=== PATIENT | male | born 1955 | race Caucasian/White ===

== ENCOUNTER 2019-06-03 15:19 | Inpatient (IN) | payer OTHER ==
--- NOTE | 2019-06-03 19:29 | HP ---
CIWA Score - Admission Criteria OASAS Guidelines: Admission for Medically Managed Detox: Requires at least one of the followin. CIWA greater than 12 2. Seizures within the past 24 hours 3. Delirium tremens within the past 24 hours 4. Hallucinations within the past 24 hours 5. Acute intervention needed for co occurring medical disorder 6. Acute intervention needed for co occurring psychiatric disorder 7. Severe withdrawal that cannot be handled at a lower level of care (continued vomiting, continued diarrhea, abnormal vital signs) requiring intravenous medication and/or fluids 8. Admission ROS S - HPI Allergies/Adverse Reactions: Allergies Allergy/AdvReac Type Severity Reaction Status Date / Time ibuprofen [From Motrin] AdvReac Vomiting Verified 06/03/19 17:48 History of Present Illness: Data Detail Level: Printer-Friendly View Confidential Drug Utilization Report Search Terms: more kaiser, 1955 Search Date: 06/03/2019 07:27:20 PM The Drug Utilization Report below displays all of the controlled substance prescriptions, if any, that your patient has filled in the last twelve months. The information displayed on this report is compiled from pharmacy submissions to the Department, and accurately reflects the information as submitted by the pharmacies. There are no results for the search terms that you entered. 2017 [facility] Department of Health - [place] of Narcotic Enforcement 06/03/2019 19:27:20 Patient History - Substances abused Alcohol Substance route: Oral Frequency: Daily Amount used: 12 beers Age of first use: 16 Date of last use: 06/03/19 Heroin Substance route: Inhalation Frequency: Daily Amount used: 6 bags Age of first use: 14 Date of last use: 06/02/19 Admission Physical Exam [facility] - Vital Signs Vital Signs: Vital Signs - 24 hr 06/03/19 06/03/19 17:47 18:18 Temperature 97.6 F 97.6 F Pulse Rate 74 74 Respiratory 20 20 Rate Blood Pressure 136/84 136/84 Breathalyzer - Breathalyzer Breathalyzer: 0 Urine Drug Screen - Test Device Lot number: [id number] Expiration date: 03/17/21 - Control Is test valid?: Yes - Results Drug screen NEGATIVE: No Urine drug screen results: MOP-Opiates, MTD-Methadone
--- NOTE | 2019-06-03 19:43 | HP ---
CIWA Score Nausea/Vomitin (x 1) Muscle Tremors: 3 Anxiety: 4-Mod. Anxious/Guarded Agitation: 3 Paroxysmal Sweats: 2 Orientation: 2-Disoriented Date<2 days Tacttile Disturbances: 0-None Auditory Disturbances: 0-None Visual Disturbances: 0-None Headache: 0-None Present CIWA-Ar Total Score: 16 - Admission Criteria OASAS Guidelines: Admission for Medically Managed Detox: Requires at least one of the followin. CIWA greater than 12 2. Seizures within the past 24 hours 3. Delirium tremens within the past 24 hours 4. Hallucinations within the past 24 hours 5. Acute intervention needed for co occurring medical disorder 6. Acute intervention needed for co occurring psychiatric disorder 7. Severe withdrawal that cannot be handled at a lower level of care (continued vomiting, continued diarrhea, abnormal vital signs) requiring intravenous medication and/or fluids 8. Admission ROS [facility] Chief Complaint: Seeking admission to detox from alcohol, on MMTP Allergies/Adverse Reactions: Allergies Allergy/AdvReac Type Severity Reaction Status Date / Time ibuprofen [From Motrin] AdvReac Vomiting Verified 06/03/19 17:48 History of Present Illness: 64 years old male with a long history of alcohol dependence is seeking admission to detox. Patient has been in prior detox at [facility], [facility] 2004 and reports 8 years of sobriety. This is his first admission to [facility]. He has medical history of COPD, Asthma, PPD positive, arthritis, Hep C (treated with Harvoni) and liver Cirrhosis. Patient reports psych history of depression and anxiety (not on medication). He denies suicide attempt and suicidal ideation at this time. [facility] Dose is yet to be confirmed by the nurse. Exam Limitations: No Limitations - Ebola screening Have you traveled outside of the country in the last 21 days: No Have you been sick,other than usual withdrawal symptoms: No Do you have a fever: No - Review of Systems Constitutional: Chills, Malaise, Night Sweats, Changes in sleep EENT: reports: No Symptoms Reported Respiratory: reports: No Symptoms reported Cardiac: reports: No Symptoms Reported GI: reports: Diarrhea (x 2), Nausea, Poor Fluid Intake, Vomiting (x 1), Abdominal cramping : reports: No Symptoms Reported Musculoskeletal: reports: Other (chronic knee pain) Integumentary: reports: Dryness, Flushing Neuro: reports: Tremors Endocrine: reports: No Symptoms Reported Hematology: reports: No Symptoms Reported Psychiatric: reports: Mood/Affect Appropiate, Orientated x3, Anxious, Depressed Other Systems: Reviewed and Negative Patient History - Patient Medical History Hx Anemia: No Hx Asthma: No Hx Chronic Obstructive Pulmonary Disease (COPD): Yes Hx Cancer: No Hx Cardiac Disorders: No Hx Congestive Heart Failure: No Hx Hypertension: No Hx Hypercholesterolemia: No Hx Pacemaker: No HX Cerebrovascular Accident: No Hx Seizures: No Hx Dementia: No Hx Diabetes: No Hx Gastrointestinal Disorders: No Hx Liver Disease: Yes (Hep C) Hx Genitourinary Disorders: No Hx Sexually Transmitted Disorders: No Hx Renal Disease (ESRD): No Hx Thyroid Disease: No Hx Human Immunodeficiency Virus (HIV): No (Negative 2019) Hx Hepatitis C: Yes (Treated with Harvoni) Hx Depression: Yes Hx Suicide Attempt: No (Denies suicidal ideation at this time) Hx Bipolar Disorder: No Hx Schizophrenia: No Other Medical History: Anxiety - Patient Surgical History Past Surgical History: No - PPD History Previous Implant?: No (PPD POSITIVE. TREATED WITH INH) Documented Results: Positive w/o proof Implanted On Prior [facility] Admission?: No PPD to be Administered?: No - Reproductive History Patient is a Female of Child Bearing Age (11 -55 yrs old): No (male) - Smoking Cessation Smoking history: Former smoker Have you smoked in the past 12 months: No Hx Chewing Tobacco Use: No Initiated information on smoking cessation: No - Substance & Tx. History Hx Alcohol Use: Yes Hx Substance Use: Yes Substance Use Type: Alcohol, Heroin, Prescribed Hx Substance Use Treatment: Yes ([facility] [place], [place] 2005) - Substances abused Alcohol Substance route: Oral Frequency: Daily Amount used: 12 beers Age of first use: 16 Date of last use: 06/03/19 Heroin Substance route: Inhalation Frequency: Daily Amount used: 6 bags Age of first use: 14 Date of last use: 06/02/19 Admission Physical Exam [facility] - Vital Signs Vital Signs: Vital Signs - 24 hr 06/03/19 06/03/19 17:47 18:18 Temperature 97.6 F 97.6 F Pulse Rate 74 74 Respiratory 20 20 Rate Blood Pressure 136/84 136/84 - Physical General Appearance: Yes: Moderate Distress, Tremorous, Sweating, Anxious HEENTM: Yes: Within Normal Limits, EOMI, Normal Voice, [place] Respiratory: Yes: Lungs Clear, Normal Breath Sounds, No Respiratory Distress Neck: Yes: Within Normal Limits Breast: Yes: Breast Exam Deferred Cardiology: Yes: Regular Rhythm, Regular Rate Abdominal: Yes: Normal Bowel Sounds, Soft Back: Yes: Normal Inspection Musculoskeletal: Yes: Other (knee pain) Extremities: Yes: Tremors Neurological: Yes: Within Normal Limits, Alert, Normal Mood/Affect Integumentary: Yes: Warm Lymphatic: Yes: Within Normal Limits - Diagnostic (1) Asthma Current Visit: Yes Status: Chronic Qualifiers: Asthma severity: mild Asthma persistence: unspecified (2) COPD (chronic obstructive pulmonary disease) Current Visit: Yes Status: Chronic Qualifiers: Chronic bronchitis type: unspecified (3) Arthritis Current Visit: Yes Status: Chronic (4) Opioid dependence with withdrawal Current Visit: Yes Status: Acute (5) Methadone maintenance therapy patient Current Visit: Yes Status: Chronic (6) Alcohol dependence with withdrawal, uncomplicated Current Visit: Yes Status: Acute (7) PPD positive, treated Current Visit: Yes Status: Chronic Cleared for Admission S - Detox or Rehab [facility] Level of Care: Medically Managed Detox Regimen/Protocol: Librium Claeared for Rehab Admission: No Breathalyzer - Breathalyzer Breathalyzer: 0 Urine Drug Screen - Test Device Lot number: [id number] Expiration date: 03/17/21 - Control Is test valid?: Yes - Results Drug screen NEGATIVE: No Urine drug screen results: MOP-Opiates, MTD-Methadone Inpatient Rehab Admission - Rehab Decision to Admit Inpatient rehab admission?: No
[2019-06-03] MEDS ORDERED: MENTHOL/PHENOL 1 EACH UD MM PRN (19:56)
[2019-06-03] MEDS ORDERED: chlordiazePOXIDE HCL 25 MG CAPSULE PO PRN (19:56)
[2019-06-03] MEDS ORDERED: MAGNESIUM CITRATE 300 ML BOTTLE PO PRN (19:56)
[2019-06-03] MEDS ORDERED: MAGNESIUM HYDROX 2400MG/30ML ORAL SUSPENSION 30 ML CUP PO PRN (19:56)
[2019-06-03] MEDS ORDERED: MAG HYDROX/AL HYDROX/SIMETH 30 ML UNIT-DOSE CUP PO PRN (19:56)
[2019-06-03] MEDS ORDERED: ACETAMINOPHEN 325 MG TABLET (FP) PO PRN ×2 (19:56)
[2019-06-03] MEDS ORDERED: BISMUTH SUBSALICYLATE 524 MG/30 ML UD PO PRN (19:56)
[2019-06-03] MEDS: THIAMINE HCL 100 MG TABLET (FP) PO SCH (21:39)
[2019-06-03] MEDS: METHOCARBAMOL 500 MG TABLET PO PRN (21:39)
[2019-06-03] MEDS: MELATONIN 5 MG TABLETS PO PRN (21:40)
[2019-06-03] MEDS: chlordiazePOXIDE HCL 25 MG CAPSULE PO SCH (22:04)
[2019-06-03] MEDS: ALBUTEROL SO4 HFA INHALER IH PRN (22:14)
[2019-06-04] MEDS: chlordiazePOXIDE HCL 25 MG CAPSULE PO SCH ×4 (06:10→22:13)
[2019-06-04] MEDS ORDERED: METHADONE HCL 10 MG TABLET PO ONE (08:56)
[2019-06-04] MEDS ORDERED: METHADONE 80 MG, METHADONE 30 MG PO ONE (09:30)
[2019-06-04] MEDS ORDERED: METHADONE HCL 10 MG TABLET ONE (09:41)
[2019-06-04] MEDS ORDERED: METHADONE HCL 40 MG DISPERSABLE TABLET ONE (09:42)
[2019-06-04] MEDS: PRENATAL VITAMINS W/ FOLIC ACID TABLET (FP) PO SCH (10:24)
[2019-06-04 10:34] LABS: HEMATOCRIT 37.6 % (35.4-49); HEMOGLOBIN 12.6 GM/dL (11.7-16.9); MCH 29.5 pg (25.7-33.7); MCHC 33.6 g/dl (32.0-35.9); MEAN CELL VOLUME 87.7 fl (80-96); MEAN PLT VOLUME 8.7 fl (7.5-11.1); PLATELET COUNT 218 K/MM3 (134-434); RBC 4.29 M/mm3 (4.00-5.60); RDW 14.1 % (11.9-15.9); WHITE BLOOD COUNT 5.1 K/mm3 (4.0-10.0)
--- NOTE | 2019-06-04 10:39 | PN ---
S CIWA - CIWA Score Nausea/Vomitin-Mild Nausea/No Vomiting Muscle Tremors: 3 Anxiety: 3 Agitation: 1-Slight > Activity Paroxysmal Sweats: 2 Orientation: 0-Oriented Tacttile Disturbances: 0-None Auditory Disturbances: 0-None Visual Disturbances: 1-Very Mild Sensitivity Headache: 1-Very Mild CIWA-Ar Total Score: 12 S Progress Note (SOAP) Subjective: 64 years old male admitted on 06/03/19 for alcohol withdrawal sx management treating with librium detox regiment received methadone 110 mg po today feeling ok ambulating on hallway social with peers in day room attending behavior and psychosocial therapies groups and meetings patient determines to maintain sober and discusses aftercare with staff Objective: 06/04/19 10:38 Vital Signs Temperature 97.5 F L 06/04/19 08:43 Pulse Rate 73 06/04/19 08:43 Respiratory Rate 18 06/04/19 08:43 Blood Pressure 131/84 06/04/19 08:43 O2 Sat by Pulse Oximetry (%) 06/04/19 10:38 lab noted Assessment: 06/04/19 10:38 alcohol withdrawal Plan: librium regiment
--- NOTE | 2019-06-04 10:45 | EKG ---
Test Reason : Blood Pressure : / mmHG Vent. Rate : 064 BPM Atrial Rate : 064 BPM P-R Int : 182 ms QRS Dur : 080 ms QT Int : 432 ms P-R-T Axes : 039 065 075 degrees QTc Int : 445 ms NORMAL SINUS RHYTHM NORMAL ECG NO PREVIOUS ECGS AVAILABLE Confirmed by Rigoberto Montgomery MD ([id number]) on 06/04/2019 10:44:38 AM Referred By: Confirmed By:Rigoberto Montgomery MD
[2019-06-04 10:46] LABS: ALBUMIN 3.2 g/dl (3.4-5.0); BILIRUBIN,TOTAL 0.4 mg/dL (0.2-1); BLOOD UREA NITROGEN 8.9 mg/dL (7-18); CALCIUM 9.3 mg/dL (8.5-10.1); CREATININE 0.9 mg/dL (0.55-1.3); POTASSIUM 4.5 mmol/L (3.5-5.1); TOT PROT 6.7 g/dl (6.4-8.2)
--- NOTE | 2019-06-04 18:45 | CONSULT ---
[facility] Psychiatric Consult - Data Date of interview: 06/04/19 Admission source: [facility] Identifying data: First visit at [facility] and admission to [address] [place] [address] for this 64 y/o male self-referred for detoxification treatment. LORE issues : alcohol, heroin. Patient is single, father of one, homeless, unemployed and supported on SSI benefits. Substance Abuse History: Smoking history: Former smoker. Have you smoked in the past 12 months: No. Hx Chewing Tobacco Use: No. Initiated information on smoking cessation: No. Substance & Tx. History. Hx Alcohol Use: Yes. Hx Substance Use: Yes. Substance Use Type: Alcohol, Heroin, Prescribed. Hx Substance Use Treatment: Yes ([facility] [place], [place] 2005). - Substances abused. Alcohol. Substance route: Oral. Frequency: Daily. Amount used: 12 beers. Age of first use: 16. Date of last use: 06/03/19. Heroin. Substance route: Inhalation. Frequency: Daily. Amount used: 6 bags. Age of first use: 14. Date of last use: 06/02/19 Medical History: Medical profile is remarkable for hepatitis C (treated), bronchial asthma, COPD, osteoarthritis, positive PPD (treated with INH + B6) and cirrhosis of the liver. Psychiatric History: Patient denies history of psychiatric hospitalizations. Reportedly diagnosed with Dysthymic Disorder. Not on psychotropic medications with the exception of methadone 110 mg/day (on maintenance at the [facility] M[facility] program in [facility]). Mr Cruz indicates that he sees a " psychologist " at [facility] for psychotherapy sessions (twice a month). Patient denies history of suicide attempts. Physical/Sexual Abuse/Trauma History: Patient denies. Additional Comment: Urine drug screen results: MOP-Opiates, MTD-Methadone. Noted. Mental Status Exam - Mental Status Exam Alert and Oriented to: Time, Place, Person Cognitive Function: Good Patient Appearance: Well Groomed Mood: Withdrawn, Hopeful Affect: Appropriate, Normal Range Patient Behavior: Fatigued, Cooperative Speech Pattern: Clear, Appropriate Voice Loudness: Normal Thought Process: Intact, Goal Oriented Thought Disorder: Not Present Hallucinations: Denies Suicidal Ideation: Denies Homicidal Ideation: Denies Insight/Judgement: Poor Sleep: Well Appetite: Good Gait/Station: Normal Psychiatric Findings - Problem List (Young 1, 2,3) (1) Alcohol dependence with withdrawal, uncomplicated Current Visit: Yes Status: Acute (2) Opioid dependence on agonist therapy Current Visit: Yes Status: Chronic (3) History of dysthymia Current Visit: Yes Status: Chronic Comment: Self-report. On psychotherapy alone at [facility]. - Initial Treatment Plan Initial Treatment Plan: Psychoeducation. Sleep hygiene. Detoxification. NA/AA meetings. Support. Observation.
[2019-06-04] MEDS: THIAMINE HCL 100 MG TABLET (FP) PO SCH (22:11)
[2019-06-04] MEDS: MELATONIN 5 MG TABLETS PO PRN (22:33)
[2019-06-05] MEDS ORDERED: METHADONE HCL 40 MG DISPERSABLE TABLET ONE (04:50)
[2019-06-05] MEDS ORDERED: METHADONE HCL 10 MG TABLET ONE (04:50)
[2019-06-05] MEDS: chlordiazePOXIDE HCL 25 MG CAPSULE PO SCH ×4 (05:26→22:28)
[2019-06-05] MEDS: METHADONE 80 MG, METHADONE 30 MG PO SCH (05:26)
[2019-06-05] MEDS ORDERED: METHADONE HCL 10 MG TABLET PO SCH (06:00)
[2019-06-05] MEDS: ALBUTEROL SO4 HFA INHALER IH PRN (08:36)
[2019-06-05] MEDS: PRENATAL VITAMINS W/ FOLIC ACID TABLET (FP) PO SCH (10:07)
--- NOTE | 2019-06-05 14:35 | PN ---
[facility] CIWA - CIWA Score Nausea/Vomitin-Mild Nausea/No Vomiting Muscle Tremors: 3 Anxiety: 2 Agitation: 1-Slight > Activity Paroxysmal Sweats: 2 Orientation: 0-Oriented Tacttile Disturbances: 0-None Auditory Disturbances: 0-None Visual Disturbances: 1-Very Mild Sensitivity Headache: 1-Very Mild CIWA-Ar Total Score: 11 S Progress Note (SOAP) Subjective: 64 years old male admitted on 06/03/19 for alcohol withdrawal sx management treating with librum detox regiment feeling ok today ate breakfast and lunch in day room social with peers encourage the patient to attend behavior and psychosocial therapies while in detox Objective: 06/05/19 14:43 Vital Signs Temperature 96.6 F L 06/05/19 12:41 Pulse Rate 72 06/05/19 12:41 Respiratory Rate 18 06/05/19 12:41 Blood Pressure 118/76 06/05/19 12:41 O2 Sat by Pulse Oximetry (%) Laboratory Last Values WBC 5.1 K/mm3 (4.0-10.0) 06/04/19 07:45 RBC 4.29 M/mm3 (4.00-5.60) 06/04/19 07:45 Hgb 12.6 GM/dL (11.7-16.9) 06/04/19 07:45 Hct 37.6 % (35.4-49) 06/04/19 07:45 MCV 87.7 fl (80-96) 06/04/19 07:45 MCH 29.5 pg (25.7-33.7) 06/04/19 07:45 MCHC 33.6 g/dl (32.0-35.9) 06/04/19 07:45 RDW 14.1 % (11.9-15.9) 06/04/19 07:45 Plt Count 218 K/MM3 (134-434) 06/04/19 07:45 MPV 8.7 fl (7.5-11.1) 06/04/19 07:45 Sodium 138 mmol/L (136-145) 06/04/19 07:45 Potassium 4.5 mmol/L (3.5-5.1) 06/04/19 07:45 Chloride 101 mmol/L (98-107) 06/04/19 07:45 Carbon Dioxide 32 mmol/L (21-32) 06/04/19 07:45 Anion Gap 5 MMOL/L (8-16) L 06/04/19 07:45 BUN 8.9 mg/dL (7-18) 06/04/19 07:45 Creatinine 0.9 mg/dL (0.55-1.3) 06/04/19 07:45 Est GFR (CKD-EPI)AfAm 103.51 06/04/19 07:45 Est GFR (CKD-EPI)NonAf 89.31 06/04/19 07:45 Random Glucose 103 mg/dL (74-106) 06/04/19 07:45 Calcium 9.3 mg/dL (8.5-10.1) 06/04/19 07:45 Total Bilirubin 0.4 mg/dL (0.2-1) 06/04/19 07:45 AST 18 U/L (15-37) 06/04/19 07:45 ALT 18 U/L (13-61) 06/04/19 07:45 Alkaline Phosphatase 72 U/L (45-117) 06/04/19 07:45 Total Protein 6.7 g/dl (6.4-8.2) 06/04/19 07:45 Albumin 3.2 g/dl (3.4-5.0) L 06/04/19 07:45 RPR Titer Nonreactive (NONREACTIVE) 06/04/19 07:45 lab noted Assessment: 06/05/19 14:44 alcohol withdrawal Plan: librium regiment
[2019-06-05] MEDS: MELATONIN 5 MG TABLETS PO PRN (22:28)
[2019-06-05] MEDS: THIAMINE HCL 100 MG TABLET (FP) PO SCH (22:28)
[2019-06-06] MEDS ORDERED: chlordiazePOXIDE HCL 10 MG CAPSULE PO PRN
[2019-06-06] MEDS ORDERED: METHADONE HCL 40 MG DISPERSABLE TABLET ONE (04:05)
[2019-06-06] MEDS ORDERED: METHADONE HCL 10 MG TABLET ONE (04:05)
[2019-06-06] MEDS: METHADONE 80 MG, METHADONE 30 MG PO SCH (05:35)
[2019-06-06] MEDS: chlordiazePOXIDE HCL 10 MG CAPSULE PO SCH ×4 (05:35→22:10)
[2019-06-06] MEDS: METHOCARBAMOL 500 MG TABLET PO PRN (05:36)
[2019-06-06] MEDS: PRENATAL VITAMINS W/ FOLIC ACID TABLET (FP) PO SCH (10:15)
[2019-06-06] MEDS: ALBUTEROL SO4 HFA INHALER IH PRN ×2 (10:24→22:19)
--- NOTE | 2019-06-06 11:43 | PN ---
[facility] CIWA - CIWA Score Nausea/Vomitin-No Nausea/No Vomiting Muscle Tremors: 1-None Visible, but [place] Anxiety: 1-Mildly Anxious Agitation: 0-Normal Activity Paroxysmal Sweats: 2 Orientation: 0-Oriented Tacttile Disturbances: 0-None Auditory Disturbances: 0-None Visual Disturbances: 1-Very Mild Sensitivity Headache: 0-None Present CIWA-Ar Total Score: 5 S Progress Note (SOAP) Subjective: Complains of right shoulder pain he attributes to arthritis, mild back pain, asking for albuterol inhaler Objective: 06/06/19 11:40 Laboratory Last Values WBC 5.1 K/mm3 (4.0-10.0) 06/04/19 07:45 RBC 4.29 M/mm3 (4.00-5.60) 06/04/19 07:45 Hgb 12.6 GM/dL (11.7-16.9) 06/04/19 07:45 Hct 37.6 % (35.4-49) 06/04/19 07:45 MCV 87.7 fl (80-96) 06/04/19 07:45 MCH 29.5 pg (25.7-33.7) 06/04/19 07:45 MCHC 33.6 g/dl (32.0-35.9) 06/04/19 07:45 RDW 14.1 % (11.9-15.9) 06/04/19 07:45 Plt Count 218 K/MM3 (134-434) 06/04/19 07:45 MPV 8.7 fl (7.5-11.1) 06/04/19 07:45 Sodium 138 mmol/L (136-145) 06/04/19 07:45 Potassium 4.5 mmol/L (3.5-5.1) 06/04/19 07:45 Chloride 101 mmol/L (98-107) 06/04/19 07:45 Carbon Dioxide 32 mmol/L (21-32) 06/04/19 07:45 Anion Gap 5 MMOL/L (8-16) L 06/04/19 07:45 BUN 8.9 mg/dL (7-18) 06/04/19 07:45 Creatinine 0.9 mg/dL (0.55-1.3) 06/04/19 07:45 Est GFR (CKD-EPI)AfAm 103.51 06/04/19 07:45 Est GFR (CKD-EPI)NonAf 89.31 06/04/19 07:45 Random Glucose 103 mg/dL (74-106) 06/04/19 07:45 Calcium 9.3 mg/dL (8.5-10.1) 06/04/19 07:45 Total Bilirubin 0.4 mg/dL (0.2-1) 06/04/19 07:45 AST 18 U/L (15-37) 06/04/19 07:45 ALT 18 U/L (13-61) 06/04/19 07:45 Alkaline Phosphatase 72 U/L (45-117) 06/04/19 07:45 Total Protein 6.7 g/dl (6.4-8.2) 06/04/19 07:45 Albumin 3.2 g/dl (3.4-5.0) L 06/04/19 07:45 RPR Titer Nonreactive (NONREACTIVE) 06/04/19 07:45 Vital Signs Temperature 97.3 F L 06/06/19 09:06 Pulse Rate 84 06/06/19 09:06 Respiratory Rate 18 06/06/19 09:06 Blood Pressure 117/75 06/06/19 09:06 O2 Sat by Pulse Oximetry (%) PE Gnl: WDWN, in bed Mentation: nl Gait: ambulating earlier, steady Extremity: full range of motion right shoulder Assessment: 06/06/19 11:41 1. Alcohol use disorder 2. Opioid use disorder 3. Shoulder Pain 4. Hx of asthma Plan: 1. Continue Librium withdrawal protocol 2. continue Methadone maintenance 3. Asthma, clinically stable, has prn order for albuterol 4. Shoulder pain: encouraged pt to use NSAID and/or muscle relaxor
--- NOTE | 2019-06-06 17:47 | PN ---
[facility] Progress Note Note: pt requesting Ensure . P : Ensure ordered
[2019-06-06] MEDS: MELATONIN 5 MG TABLETS PO PRN (22:10)
[2019-06-06] MEDS: THIAMINE HCL 100 MG TABLET (FP) PO SCH (22:10)
[2019-06-07] MEDS ORDERED: METHADONE HCL 40 MG DISPERSABLE TABLET ONE (04:17)
[2019-06-07] MEDS ORDERED: METHADONE HCL 10 MG TABLET ONE (04:17)
[2019-06-07] MEDS: chlordiazePOXIDE HCL 10 MG CAPSULE PO SCH ×2 (05:09→17:58)
[2019-06-07] MEDS: METHADONE 80 MG, METHADONE 30 MG PO SCH (05:09)
[2019-06-07] MEDS: METHOCARBAMOL 500 MG TABLET PO PRN ×2 (05:10→23:01)
[2019-06-07] MEDS: ALBUTEROL SO4 HFA INHALER IH PRN ×2 (09:59→18:08)
[2019-06-07] MEDS: PRENATAL VITAMINS W/ FOLIC ACID TABLET (FP) PO SCH (09:59)
--- NOTE | 2019-06-07 10:29 | PN ---
S CIWA - CIWA Score Nausea/Vomitin-No Nausea/No Vomiting Muscle Tremors: None Anxiety: 1-Mildly Anxious Agitation: 0-Normal Activity Paroxysmal Sweats: 2 Orientation: 0-Oriented Tacttile Disturbances: 0-None Auditory Disturbances: 0-None Visual Disturbances: 0-None Headache: 0-None Present CIWA-Ar Total Score: 3 [facility] Progress Note (SOAP) Subjective: c/o mild withdrawal symptoms. Objective: 06/07/19 10:28 Vital Signs 06/07/19 06/07/19 06/07/19 03:30 05:03 06:30 Temperature 97.9 F Pulse Rate 77 Respiratory 18 18 18 Rate Blood Pressure 142/92 06/07/19 08:53 Temperature 97.4 F L Pulse Rate 79 Respiratory 18 Rate Blood Pressure 113/71 Laboratory Last Values WBC 5.1 K/mm3 (4.0-10.0) 06/04/19 07:45 RBC 4.29 M/mm3 (4.00-5.60) 06/04/19 07:45 Hgb 12.6 GM/dL (11.7-16.9) 06/04/19 07:45 Hct 37.6 % (35.4-49) 06/04/19 07:45 MCV 87.7 fl (80-96) 06/04/19 07:45 MCH 29.5 pg (25.7-33.7) 06/04/19 07:45 MCHC 33.6 g/dl (32.0-35.9) 06/04/19 07:45 RDW 14.1 % (11.9-15.9) 06/04/19 07:45 Plt Count 218 K/MM3 (134-434) 06/04/19 07:45 MPV 8.7 fl (7.5-11.1) 06/04/19 07:45 Sodium 138 mmol/L (136-145) 06/04/19 07:45 Potassium 4.5 mmol/L (3.5-5.1) 06/04/19 07:45 Chloride 101 mmol/L (98-107) 06/04/19 07:45 Carbon Dioxide 32 mmol/L (21-32) 06/04/19 07:45 Anion Gap 5 MMOL/L (8-16) L 06/04/19 07:45 BUN 8.9 mg/dL (7-18) 06/04/19 07:45 Creatinine 0.9 mg/dL (0.55-1.3) 06/04/19 07:45 Est GFR (CKD-EPI)AfAm 103.51 06/04/19 07:45 Est GFR (CKD-EPI)NonAf 89.31 06/04/19 07:45 Random Glucose 103 mg/dL (74-106) 06/04/19 07:45 Calcium 9.3 mg/dL (8.5-10.1) 06/04/19 07:45 Total Bilirubin 0.4 mg/dL (0.2-1) 06/04/19 07:45 AST 18 U/L (15-37) 06/04/19 07:45 ALT 18 U/L (13-61) 06/04/19 07:45 Alkaline Phosphatase 72 U/L (45-117) 06/04/19 07:45 Total Protein 6.7 g/dl (6.4-8.2) 06/04/19 07:45 Albumin 3.2 g/dl (3.4-5.0) L 06/04/19 07:45 RPR Titer Nonreactive (NONREACTIVE) 06/04/19 07:45 Labs noted. Assessment: 06/07/19 10:28 AOX3, in no acute respiratory distress. Full ROM, ambulating in the unit. Mild Withdrawal symptoms. For d/c tomorrow. Plan: continue detox. D/C in AM.
[2019-06-07] MEDS: THIAMINE HCL 100 MG TABLET (FP) PO SCH (22:26)
[2019-06-08] MEDS ORDERED: METHADONE HCL 10 MG TABLET ONE (04:45)
[2019-06-08] MEDS ORDERED: METHADONE HCL 40 MG DISPERSABLE TABLET ONE (04:46)
[2019-06-08] MEDS ORDERED: chlordiazePOXIDE HCL 10 MG CAPSULE PO ONE (05:00)
[2019-06-08] MEDS: METHADONE 80 MG, METHADONE 30 MG PO SCH (05:22)
[2019-06-08] MEDS: METHOCARBAMOL 500 MG TABLET PO PRN (05:38)
[2019-06-08 09:58] VITALS: BP 115/72; PULSE 85; TEMP 97.5
[2019-06-08] MEDS: PRENATAL VITAMINS W/ FOLIC ACID TABLET (FP) PO SCH (10:13)
--- NOTE | 2019-06-08 13:35 | DS ---
[facility] Detox Discharge Summary Admission Date: 06/03/19 Discharge Date: 06/08/19 - History Present History: Alcohol Dependence Additional Comments: 64 years old male admitted on 06/03/19 for alcohol withdrawal sx management treated with librium detox regiment Mr Cruz has completed the librium regiment and tolerated well seen by psychiatrist no medical intervention at this time patient is alert oriented x 3 cardiac s1s2 regular rate rhythm respiratory clear lungs bilaterally on auscultation skin war and dry Pertinent Past History: time for discharge 34 minutes - Physical Exam Results Vital Signs: Vital Signs Temperature 97.5 F L 06/08/19 08:50 Pulse Rate 85 06/08/19 08:50 Respiratory Rate 18 06/08/19 08:50 Blood Pressure 115/72 06/08/19 08:50 O2 Sat by Pulse Oximetry (%) Pertinent Admission Physical Exam Findings: alcohol withdrawal Vital Signs Temperature 97.5 F L 06/08/19 08:50 Pulse Rate 85 06/08/19 08:50 Respiratory Rate 18 06/08/19 08:50 Blood Pressure 115/72 06/08/19 08:50 O2 Sat by Pulse Oximetry (%) Laboratory Last Values WBC 5.1 K/mm3 (4.0-10.0) 06/04/19 07:45 RBC 4.29 M/mm3 (4.00-5.60) 06/04/19 07:45 Hgb 12.6 GM/dL (11.7-16.9) 06/04/19 07:45 Hct 37.6 % (35.4-49) 06/04/19 07:45 MCV 87.7 fl (80-96) 06/04/19 07:45 MCH 29.5 pg (25.7-33.7) 06/04/19 07:45 MCHC 33.6 g/dl (32.0-35.9) 06/04/19 07:45 RDW 14.1 % (11.9-15.9) 06/04/19 07:45 Plt Count 218 K/MM3 (134-434) 06/04/19 07:45 MPV 8.7 fl (7.5-11.1) 06/04/19 07:45 Sodium 138 mmol/L (136-145) 06/04/19 07:45 Potassium 4.5 mmol/L (3.5-5.1) 06/04/19 07:45 Chloride 101 mmol/L (98-107) 06/04/19 07:45 Carbon Dioxide 32 mmol/L (21-32) 06/04/19 07:45 Anion Gap 5 MMOL/L (8-16) L 06/04/19 07:45 BUN 8.9 mg/dL (7-18) 06/04/19 07:45 Creatinine 0.9 mg/dL (0.55-1.3) 06/04/19 07:45 Est GFR (CKD-EPI)AfAm 103.51 06/04/19 07:45 Est GFR (CKD-EPI)NonAf 89.31 06/04/19 07:45 Random Glucose 103 mg/dL (74-106) 06/04/19 07:45 Calcium 9.3 mg/dL (8.5-10.1) 06/04/19 07:45 Total Bilirubin 0.4 mg/dL (0.2-1) 06/04/19 07:45 AST 18 U/L (15-37) 06/04/19 07:45 ALT 18 U/L (13-61) 06/04/19 07:45 Alkaline Phosphatase 72 U/L (45-117) 06/04/19 07:45 Total Protein 6.7 g/dl (6.4-8.2) 06/04/19 07:45 Albumin 3.2 g/dl (3.4-5.0) L 06/04/19 07:45 RPR Titer Nonreactive (NONREACTIVE) 06/04/19 07:45 lab noted - Treatment Hospital Course: Detox Protocol Followed, Detoxed Safely, Responded well, Discharged Condition Good, Rehab Referral Accepted Patient has Accepted a Rehab Referral to: [facility] - Medication Discharge Medications: Ambulatory Orders Albuterol Sulfate Hfa 2 inhaler PO QID PRN 06/03/19 - Diagnosis (1) Alcohol dependence with withdrawal, uncomplicated Current Visit: Yes Status: Acute (2) Asthma Current Visit: Yes Status: Chronic Qualifiers: Asthma severity: mild Asthma persistence: intermittent Asthma complication type: with status asthmaticus Qualified Code(s): J45.22 - Mild intermittent asthma with status asthmaticus (3) COPD (chronic obstructive pulmonary disease) Current Visit: Yes Status: Chronic Qualifiers: Chronic bronchitis type: unspecified (4) Methadone maintenance therapy patient Current Visit: Yes Status: Chronic (5) PPD positive, treated Current Visit: Yes Status: Resolved - AMA Did Patient Leave Against Medical Advice: No CIWA Score - CIWA Score Nausea/Vomitin-No Nausea/No Vomiting Muscle Tremors: None Anxiety: 0-No Anxiety, at Ease Agitation: 0-Normal Activity Paroxysmal Sweats: 1-Minimal Palms Moist Orientation: 0-Oriented Tacttile Disturbances: 0-None Auditory Disturbances: 0-None Visual Disturbances: 0-None Headache: 0-None Present CIWA-Ar Total Score: 1
== END 2019-06-08 13:21 | disposition home or self-care (01) | DRG 897 ==
LOC: YASAS 15:19 → Y3N 20:27
PROVIDERS: ADMIT Allergy & Immunology; ATTEND Allergy & Immunology
PROC: HZ2ZZZZ Detoxification Services for Substance Abuse Treatment (ICD-10-PCS; principal; 2019-06-03)
DX: F10.230 Alcohol dependence with withdrawal, uncomplicated (principal); J45.22 Mild intermittent asthma with status asthmaticus; F11.23 Opioid dependence with withdrawal; F34.1 Dysthymic disorder; F32.9 Major depressive disorder, single episode, unspecified; F41.9 Anxiety disorder, unspecified; J44.9 Chronic obstructive pulmonary disease, unspecified; M12.9 Arthropathy, unspecified; Z87.891 Personal history of nicotine dependence; Z86.19 Personal history of other infectious and parasitic diseases; R76.11 Nonspecific reaction to tuberculin skin test without active tuberculosis
CPT/HCPCS: 36415; 71046-TC-FY; 80053; 85027; 86593; 93005; 93010